=== PATIENT | male | born 1965 | race Caucasian/White ===

== ENCOUNTER 2017-04-21 15:08 | Emergency (ER) | payer MEDICARE ==
[~2017-04-21] VITALS: Ht 175.3 cm; Wt 80.0 kg
[2017-04-21] MEDS ORDERED: SODIUM CHLORIDE 0.9% 1,000 ML IV ONE (15:44)
[2017-04-21] MEDS ORDERED: KETOROLAC 30MG/ML VIAL IV STA (15:44)
[2017-04-21 16:25] LABS: BASOPHILS % 2.7 % (0.0-2.0); EOSINOPHILS % 0.3 % (0.0-5.0); HEMATOCRIT. 41.7 % (42.0-52.0); HEMOGLOBIN. 14.1 g/dL (14.0-18.0); INR 1.1; LYMPHOCYTES % 43.5 % (20.0-50.0); MEAN CORPUSCULAR HEMOGLOBIN 30.7 pg (28.0-32.0); MEAN CORPUSCULAR VOLUME 90.5 fL (80.0-94.0); MEAN PLATELET VOLUME 7.4 fl (7.4-10.4); MONOCYTES % 10.9 % (2.0-8.0); NEUTROPHILS % 42.6 % (40.0-76.0); PLATELET 313 x1000/uL (130-400); PROTHROMBIN TIME 11.7 sec; RED BLOOD CELL COUNT 4.61 mill/uL (4.7-6.1)
[2017-04-21 16:29] LABS: CARBON DIOXIDE 29 mEq/L (21-32); CHLORIDE 99 mEq/L (98-107); ETHANOL BLOOD 269 mg/dL
[2017-04-21 20:00] VITALS: BP 147/82
== END 2017-04-21 20:49 | disposition home or self-care (01) ==
LOC: ER 15:27
DX: T51.0X1A Toxic effect of ethanol, accidental (unintentional), initial encounter (principal); I10 Essential (primary) hypertension; G40.909 Epilepsy, unspecified, not intractable, without status epilepticus; Y92.89 Other specified places as the place of occurrence of the external cause
CPT/HCPCS: 36415; 74176; 80053; 83690; 85025; 85610; 96361; 96374; 99285; G0482; J1885; J7030